=== PATIENT | male | born 1950 | race Hispanic/Latino ===

== ENCOUNTER → 2021-11-01 | Outpatient (CLI) | payer OTHER ==
[~2021-11-01] MED LIST: ASPI-1197 PO; ATOR40TA69 PO; CLOP75TA32 PO; LOSA25TA41 PO; METF500S7 PO; METO25TA6 PO
[2021-11-01 12:33] LABS: CHOLESTEROL 125 mg/dL (<200); HDL CHOLESTEROL 44 mg/dL (29-71); LDL DIRECT 62 mg/dL (0-99); TRIGLYCERIDES 166 mg/dL (30-200)
== END | disposition home or self-care (01) ==
LOC: LAB 08:43
PROVIDERS: ATTEND Internal Medicine Cardiovascular Disease
DX: I25.5 Ischemic cardiomyopathy (principal)
CPT/HCPCS: 36415; 80061

== ENCOUNTER → 2021-11-24 | Outpatient (CLI) | payer OTHER | END | disposition home or self-care (01) | LOC: SHCH 09:30 | PROVIDERS: ATTEND Internal Medicine Cardiovascular Disease | DX: E11.9 Type 2 diabetes mellitus without complications (principal); I10 Essential (primary) hypertension; I25.5 Ischemic cardiomyopathy | CPT/HCPCS: 93306 ==

== ENCOUNTER 2022-10-01 12:32 | Emergency (ER) | payer OTHER ==
[~2022-10-01] VITALS: Ht 180.3 cm; Wt 74.8 kg
[~2022-10-01 12:32] MED LIST changes: -METF500S7 PO; +METF500S9 PO
[2022-10-01 12:34] VITALS: BP 97/65; PULSE 9; RESP 18
[2022-10-01] MEDS ORDERED: CEFAZOLIN SODIUM 2 GM VIAL IVPB SCH (13:00)
[2022-10-01] MEDS ORDERED: TETANUS/DIPHTHERIA TOXOID [ADULT] 0.5 ML VIAL IM ONE (13:00)
[2022-10-01] MEDS ORDERED: IOHEXOL 350 MG/ML 100ML INFUS..BTL IV ONE (13:14)
[2022-10-01 17:30] LABS: BASOPHILS % (AUTO) 0.2 % (0.0-5.0); EOSINOPHILS % (AUTO) 0.1 % (0.0-8.0); HEMATOCRIT 37.6 % (42-54); LYMPHOCYTES % (AUTO) 14.5 % (21.0-51.0); MEAN CORPUSCULAR VOLUME 88.3 fL (79-99); MONOCYTES % (AUTO) 6.9 % (3.0-13.0); NEUTROPHILS % (AUTO) 77.9 % (40.0-77.0); PLATELET COUNT (AUTO) 188 K/uL (130-400); RED BLOOD CELL COUNT(AUTO) 4.26 MIL/uL (4.50-6.20); WHITE BLOOD COUNT (AUTO) 11.2 K/uL (4.8-10.8)
[2022-10-01 17:38] LABS: CREATININE 1.2 mg/dL (0.5-1.5); POTASSIUM 4.4 mmol/L (3.5-5.1)
[2022-10-01 17:43] LABS: ALBUMIN 4.4 g/dL (3.5-5.0); TOTAL PROTEIN, SERUM 7.5 g/dL (6.0-8.3)
[2022-10-01] MEDS ORDERED: IBUP-2070 PO (18:31)
[2022-10-01] MEDS ORDERED: CEPH500B PO (18:33)
== END 2022-10-01 19:03 | disposition home or self-care (01) ==
LOC: EDH 12:32
DX: S93.402A Sprain of unspecified ligament of left ankle, initial encounter (principal); S40.212A Abrasion of left shoulder, initial encounter; S80.812A Abrasion, left lower leg, initial encounter; E11.9 Type 2 diabetes mellitus without complications; Z79.82 Long term (current) use of aspirin; Z79.84 Long term (current) use of oral hypoglycemic drugs; Z79.899 Other long term (current) drug therapy; Z95.5 Presence of coronary angioplasty implant and graft; I10 Essential (primary) hypertension; V02.99XA Pedestrian with other conveyance injured in collision with two- or three-wheeled motor vehicle, unspecified whether traffic or nontraffic accident, initial encounter; Y93.89 Activity, other specified; Y92.89 Other specified places as the place of occurrence of the external cause; Y99.8 Other external cause status
CPT/HCPCS: 99285; 93306; 70450; 96365; 84484 ×2; 80053; 85025; 36415; 90714; 73610; 72125; 71270; 74178; 90471; 93005 ×2; Q9967; J0690